=== PATIENT | female | born 1950 | race Caucasian/White ===

== ENCOUNTER 2017-07-05 14:17 | Inpatient (IN) | payer MEDICARE ==
[~2017-07-05] VITALS: Ht 175.3 cm; Wt 66.4 kg
[2017-07-05] MEDS ORDERED: IOHEXOL 350 MG/ML 10 ML VIAL (for RAD DIAG) IVCONTRAST ONE (14:18)
[2017-07-05 16:32] VITALS: BP 134/58; PULSE 66; RESP 16; TEMP 98.9; O2SAT 98
[2017-07-05] MEDS ORDERED: SYNT25TA PO (16:53)
[2017-07-05] MEDS ORDERED: ANAS1 PO (16:53)
[2017-07-05] MEDS ORDERED: LOSA50TA2 PO (16:53)
[2017-07-05] MEDS ORDERED: IRON SUPPLEMENT (16:53)
[2017-07-05 17:01] VITALS: BP 139/63; PULSE 82; RESP 18; O2SAT 98
[2017-07-05] MEDS ORDERED: IMIT50TA PO (17:11)
[2017-07-05] MEDS ORDERED: LOSA100T3 PO ×2 (17:11)
[2017-07-05] MEDS ORDERED: SODIUM CHLOR 0.9% 1000 ML INJ 1,000 ML IV SCH (17:28)
[2017-07-05] MEDS ORDERED: KETOROLAC TROMETHAMINE 30 MG/ML (IVP) VIAL IVP ONE (17:30)
[2017-07-05] MEDS ORDERED: SODIUM CHLORIDE 0.9% FLUSH 10 ML FLUSH IV FLUSH PRN ×2 (17:30→21:30)
[2017-07-05] MEDS ORDERED: ONDANSETRON HCL 4 MG/2 ML VIAL IVP ONE (17:30)
[2017-07-05] MEDS ORDERED: HYDROmorphone HCL PF 1 MG/ML VIAL IVS ONE (17:30)
--- NOTE | 2017-07-05 17:57 | PD ---
HPI Chief Complaint: Fall Time Seen by Provider: 16:59 Travel History International Travel<30 days: No Contact w/Intl Traveler<30days: No Traveled to known affect area: No History of Present Illness HPI The patient 67 years old and fell from a horse about 4 hours prior to ER arrival. She has been ambulatory since. She reports pain in the high back with radiation to the hips which is worse upon attempting to elevate the leg. No head injury or loss of consciousness. Pain is constant and of moderate severity. No nausea vomiting. No hematuria. Onset sudden. Timing constant. Patient reports a chronic neck pain which has not been exacerbated by the fall. PFSH Past Medical History Cancer: Yes ("BREAST") Hypertension: Yes Thyroid Disease: Yes ?: Not Tubal Ligation: Yes ("IN 1984") Past Surgical History Oral Surgery: Yes ("RIGHT BROKEN ARM") Other Surgery: Yes ("LEFT LUMPECTOMY") Social History Alcohol Use: Yes ("2 GLASSES OF WINE IN THE EVENING") Tobacco Use: No Substance Use: No Allergies-Medications (Allergen,Severity, Reaction): Coded Allergies: No Known Allergies (Unverified , 07/05/17) Reported Meds & Prescriptions Reported Meds & Active Scripts Active Reported Imitrex (Sumatriptan Succinate) 50 Mg Tab 50 Mg PO ONCE PRN If a satisfactory response has not been obtained at 2 hours, a second dose may be administered Losartan-Hydrochlorothiazide 100-12.5 Mg Tab 1 Tab PO DAILY [Iron Supplement] Synthroid (Levothyroxine Sodium) 25 Mcg Tab 50 Mcg PO DAILY Arimidex (Anastrozole) 1 Mg Tab 1 Mg PO DAILY Review of Systems Except as stated in HPI: all other systems reviewed are Neg General / Constitutional: No: Fever Physical Exam Narrative GENERAL: 67-year-old female well-nourished well-developed no acute distress SKIN: Warm and dry. HEAD: Atraumatic. Normocephalic. EYES: Pupils equal and round. No scleral icterus. No injection or drainage. ENT: No nasal bleeding or discharge. Mucous membranes pink and moist. NECK: Trachea midline. No JVD. CARDIOVASCULAR: Regular rate and rhythm. RESPIRATORY: Lungs are clear bilaterally. The breath sounds are equal bilaterally. GASTROINTESTINAL: Soft. Diffuse nonspecific tenderness. MUSCULOSKELETAL: Extremities without clubbing, cyanosis, or edema. No obvious deformities. NEUROLOGICAL: Awake and alert. No obvious cranial nerve deficits. Motor grossly within normal limits. Five out of 5 muscle strength in the arms and legs. Normal speech. PSYCHIATRIC: Appropriate mood and affect; insight and judgment normal. Data Data Last Documented VS Vital Signs Date Time Temp Pulse Resp B/P (MAP) Pulse Ox O2 Delivery O2 Flow Rate FiO2 07/05/17 17:01 82 18 139/63 (88) 98 Room Air 07/05/17 16:32 98.9 Orders Orders Complete Blood Count With Diff (07/05/17 17:28) Comprehensive Metabolic Panel (07/05/17 17:28) Lipase (07/05/17 17:28) Urinalysis - C+S If Indicated (07/05/17 17:28) Ct Abd/Pel W Iv Contrast(Rout) (07/05/17 17:28) Iv Access Insert/Monitor (07/05/17 17:28) Ecg Monitoring (07/05/17 17:28) Oximetry (07/05/17 17:28) Ondansetron Inj (Zofran Inj) (07/05/17 17:30) Sodium Chlor 0.9% 1000 Ml Inj (Ns 1000 M (07/05/17 17:28) Sodium Chloride 0.9% Flush (Ns Flush) (07/05/17 17:30) Ketorolac Inj (Toradol Inj) (07/05/17 17:30) Hydromorphone Pf Inj (Dilaudid Pf Inj) (07/05/17 17:30) Labs Laboratory Tests Test 07/05/17 17:45 White Blood Count 13.9 TH/MM3 Red Blood Count 4.10 MIL/MM3 Hemoglobin 13.1 GM/DL Hematocrit 38.5 % Mean Corpuscular Volume 93.8 FL Mean Corpuscular Hemoglobin 31.9 PG Mean Corpuscular Hemoglobin Concent 34.0 % Red Cell Distribution Width 13.0 % Platelet Count 187 TH/MM3 Mean Platelet Volume 8.7 FL Neutrophils (%) (Auto) 81.4 % Lymphocytes (%) (Auto) 4.8 % Monocytes (%) (Auto) 13.4 % Eosinophils (%) (Auto) 0.2 % Basophils (%) (Auto) 0.2 % Neutrophils # (Auto) 11.3 TH/MM3 Lymphocytes # (Auto) 0.7 TH/MM3 Monocytes # (Auto) 1.9 TH/MM3 Eosinophils # (Auto) 0.0 TH/MM3 Basophils # (Auto) 0.0 TH/MM3 CBC Comment DIFF FINAL Differential Comment Blood Urea Nitrogen 21 MG/DL Creatinine 0.80 MG/DL Random Glucose 100 MG/DL Total Protein 6.9 GM/DL Albumin 3.8 GM/DL Calcium Level 8.7 MG/DL Alkaline Phosphatase 81 U/L Aspartate Amino Transf (AST/SGOT) 24 U/L Alanine Aminotransferase (ALT/SGPT) 27 U/L Total Bilirubin 0.4 MG/DL Sodium Level 139 MEQ/L Potassium Level 3.7 MEQ/L Chloride Level 103 MEQ/L Carbon Dioxide Level 29.2 MEQ/L Anion Gap 7 MEQ/L Lipase 3130 U/L [facility] Medical Decision Making Medical Screen Exam Complete: Yes Emergency Medical Condition: Yes Medical Record Reviewed: Yes Differential Diagnosis Vertebral body fracture, contusion, Gastritis, pancreatitis, appendicitis, acute cholecystitis, ascending cholangitis, AAA, perforated viscous, mesenteric ischemia, hepatitis, cystitis, hydronephrosis/hydroureter/nephroureter calculus , mesenteric adenitis, biliary colic Narrative Course CBC & BMP Diagram 07/05/17 17:45 Total Protein 6.9, Albumin 3.8, Calcium Level 8.7, Alkaline Phosphatase 81, Aspartate Amino Transf (AST/SGOT) 24, Alanine Aminotransferase (ALT/SGPT) 27, Total Bilirubin 0.4 The lipase is 3130, and unexpected abnormality in this case. This CT scan data and pelvis is pending at the time of dictation and the case will be discussed with Dr. Candelaria at 7 PM he will see and care with complaint of disposition upon receipt of the CT report. Diagnosis Primary Impression: Fall from horse Additional Impression: Pancreatitis Daniel Nelson MD Jul 05, 2017 17:57
[2017-07-05 17:58] LABS: AUTOMATED NEUTROPHIL # 11.3 TH/MM3 (1.8-7.7); BASOPHIL % 0.2 % (0.0-2.0); EOSINOPHIL % 0.2 % (0.0-4.0); HEMATOCRIT 38.5 % (35.0-46.0); HEMOGLOBIN 13.1 GM/DL (11.6-15.3); LYMPH % 4.8 % (9.0-44.0); LYMPHOCYTE # 0.7 TH/MM3 (1.0-4.8); MEAN CELL VOLUME 93.8 FL (80.0-100.0); MEAN CORPUSCULAR HEMOGLOBIN 31.9 PG (27.0-34.0); MEAN PLATELET VOLUME 8.7 FL (7.0-11.0); MONO % 13.4 % (0.0-8.0); MONOCYTE # 1.9 TH/MM3 (0-0.9); NEUT % 81.4 % (16.0-70.0); PLATELET COUNT 187 TH/MM3 (150-450); WHITE BLOOD COUNT 13.9 TH/MM3 (4.0-11.0)
[2017-07-05 18:20] LABS: ALBUMIN 3.8 GM/DL (3.4-5.0); AST (GOT) 24 U/L (15-37); BICARBONATE 29.2 MEQ/L (21.0-32.0); BLOOD UREA NITROGEN 21 MG/DL (7-18); CALCIUM 8.7 MG/DL (8.5-10.1); CHLORIDE 103 MEQ/L (98-107); GLUCOSE,RANDOM 100 MG/DL (74-106); SODIUM (NA) 139 MEQ/L (136-145)
[2017-07-05 18:23] LABS: ALKALINE PHOSPHATASE 81 U/L (45-117); ALT (GPT) 27 U/L (10-53); LIPASE 3130 U/L (73-393); TOTAL BILIRUBIN ADULT 0.4 MG/DL (0.2-1.0); TOTAL PROTEIN 6.9 GM/DL (6.4-8.2)
[2017-07-05 18:57] LABS: BILIRUBIN, URINE NEG (NEG); BLOOD, URINE TRACE (NEG); GLUCOSE,URINE NEG (NEG); KETONE, URINE 40 mg/dL (NEG); MUCUS URINE FEW /lpf (OCC); NITRITE,URINE NEG (NEG); PH, URINE 5.5 (5.0-8.5); URINE COLOR YELLOW (YELLW/STRAW); URINE LEUKOCYTE ESTERASE NEG (NEG)
--- NOTE | 2017-07-05 19:19 | RADRPT ---
EXAM DATE/TIME: 07/05/2017 18:43 [facility] COMPARISON: No previous studies available for comparison. INDICATIONS : Left pelvic pain after fall off horse. IV CONTRAST: 100 cc Omnipaque 350 (iohexol) IV ORAL CONTRAST: No oral contrast ingested. RADIATION DOSE: 6.16 CTDIvol (mGy) MEDICAL HISTORY : Hypertension. Carcinoma, breast. SURGICAL HISTORY : None. ENCOUNTER: Initial ACUITY: 1 day PAIN SCALE: 8/10 LOCATION: Bilateral abdomen TECHNIQUE: Volumetric scanning of the abdomen and pelvis was performed. Using automated exposure control and ad justment of the mA and/or kV according to patient size, radiation dose was kept as low as reasonably achievable to obtain optimal diagnostic quality images. DICOM format image data is available electro nically for review and comparison. FINDINGS: Acute, minimally displaced fracture seen of the right side of the sacrum. The fracture extends into t he right S1/S2 foramen but without perceptible stenosis. Visualized osseous structures are otherwise intact. The sacral fractures associated with minimal presacral edema. No perceptible organized retrop eritoneal hematoma or evidence of active bleeding. There is an 11 mm hypodensity of the dome of the right hepatic lobe. There is a 2 cm cyst of the mid zone upper pole of the left kidney with a possible focal enhancing component along its superior nadia n. There is a 13 mm mass of the left upper pole with suspected heterogeneous enhancement. Tiny stones are suspected in the gallbladder. There is probably a 3 mm polyp of the fundus. No ductal stone or ductal dilatation demonstrated. CONCLUSION: 1. Focal and uncomplicated, minimally displaced fracture of the right side of the sacrum. 2. 2 masses of the left kidney one having an appearance of a mildly complex cyst and the other possib ly solid. There is also an indeterminate hypodensity of the right hepatic lobe. Outpatient MRI of the abdomen with and without contrast is recommended. Chas Ash MD on July 05, 2017 at 19:08 Board Certified Radiologist. This report was verified electronically.
--- NOTE | 2017-07-05 20:27 | PD ---
Physical Exam Date Seen by Provider: Jul 05, 2017 Time Seen by Provider: 20:24 Narrative Accepted in transfer of care from Dr. Nelson GENERAL: Well-developed well-nourished female in no acute distress no respiratory distress SKIN: Warm and dry. HEAD: Normocephalic. EYES: No scleral icterus. No injection or drainage. NECK: Supple, trachea midline. No JVD or lymphadenopathy. CARDIOVASCULAR: Regular rate and rhythm without murmurs, gallops, or rubs. RESPIRATORY: Breath sounds equal bilaterally. No accessory muscle use. GASTROINTESTINAL: Abdomen soft, non-tender, nondistended. MUSCULOSKELETAL: No cyanosis, or edema. BACK: Nontender without obvious deformity. No CVA tenderness. Data Data Last Documented VS Vital Signs Date Time Temp Pulse Resp B/P (MAP) Pulse Ox O2 Delivery O2 Flow Rate FiO2 07/05/17 21:26 79 18 138/62 (87) 97 Room Air 07/05/17 16:32 98.9 Orders Orders Complete Blood Count With Diff (07/05/17 17:28) Comprehensive Metabolic Panel (07/05/17 17:28) Lipase (07/05/17 17:28) Urinalysis - C+S If Indicated (07/05/17 17:28) Ct Abd/Pel W Iv Contrast(Rout) (07/05/17 17:28) Iv Access Insert/Monitor (07/05/17 17:28) Ecg Monitoring (07/05/17 17:28) Oximetry (07/05/17 17:28) Ondansetron Inj (Zofran Inj) (07/05/17 17:30) Sodium Chlor 0.9% 1000 Ml Inj (Ns 1000 M (07/05/17 17:28) Sodium Chloride 0.9% Flush (Ns Flush) (07/05/17 17:30) Ketorolac Inj (Toradol Inj) (07/05/17 17:30) Hydromorphone Pf Inj (Dilaudid Pf Inj) (07/05/17 17:30) Iohexol 350 Inj (Omnipaque 350 Inj) (07/05/17 14:18) Lipase (07/05/17 21:24) Admit To Inpatient (07/05/17 ) Code Status (07/05/17 21:23) Vital Signs (Adult) Q4H (07/05/17 21:23) Activity Oob With Assistance (07/05/17 21:23) Diet Npo (07/06/17 Breakfast) Sodium Chloride 0.9% Flush (Ns Flush) (07/05/17 21:30) Sodium Chloride 0.9% Flush (Ns Flush) (07/06/17 09:00) Acetaminophen (Tylenol) (07/05/17 21:30) Ondansetron Inj (Zofran Inj) (07/05/17 21:30) Comprehensive Metabolic Panel (07/06/17 06:00) Complete Blood Count With Diff (07/06/17 06:00) Lipase (07/06/17 06:00) Chest, Single Ap (07/05/17 21:23) Electrocardiogram (07/05/17 21:23) Pt Request For Service (07/05/17 21:23) Scd Bilateral/Knee High SUMEET.BID (07/05/17 21:23) Naloxone Inj (Narcan Inj) (07/05/17 21:30) Magnesium Hydroxide Liq (Milk Of Magnesi (07/05/17 21:30) Inpatient Certification (07/05/17 ) 1/2 Ns + Kcl 20 Meq Inj (/2 Ns + Kcl 20 (07/05/17 22:00) Anastrozole (Arimidex) (07/06/17 09:00) Sumatriptan Succinate (Imitrex) (07/05/17 21:30) Lipase (07/05/17 21:35) Levothyroxine (Synthroid) (07/06/17 06:00) Admit Order (Ed Use Only) (07/05/17 ) Vital Signs (Adult) Q4H (07/05/17 21:35) Activity Bed Rest (07/05/17 21:35) Notify Dr: Other (07/05/17 21:35) Labs Laboratory Tests Test 07/05/17 17:45 07/05/17 18:30 White Blood Count 13.9 TH/MM3 Red Blood Count 4.10 MIL/MM3 Hemoglobin 13.1 GM/DL Hematocrit 38.5 % Mean Corpuscular Volume 93.8 FL Mean Corpuscular Hemoglobin 31.9 PG Mean Corpuscular Hemoglobin Concent 34.0 % Red Cell Distribution Width 13.0 % Platelet Count 187 TH/MM3 Mean Platelet Volume 8.7 FL Neutrophils (%) (Auto) 81.4 % Lymphocytes (%) (Auto) 4.8 % Monocytes (%) (Auto) 13.4 % Eosinophils (%) (Auto) 0.2 % Basophils (%) (Auto) 0.2 % Neutrophils # (Auto) 11.3 TH/MM3 Lymphocytes # (Auto) 0.7 TH/MM3 Monocytes # (Auto) 1.9 TH/MM3 Eosinophils # (Auto) 0.0 TH/MM3 Basophils # (Auto) 0.0 TH/MM3 CBC Comment DIFF FINAL Differential Comment Blood Urea Nitrogen 21 MG/DL Creatinine 0.80 MG/DL Random Glucose 100 MG/DL Total Protein 6.9 GM/DL Albumin 3.8 GM/DL Calcium Level 8.7 MG/DL Alkaline Phosphatase 81 U/L Aspartate Amino Transf (AST/SGOT) 24 U/L Alanine Aminotransferase (ALT/SGPT) 27 U/L Total Bilirubin 0.4 MG/DL Sodium Level 139 MEQ/L Potassium Level 3.7 MEQ/L Chloride Level 103 MEQ/L Carbon Dioxide Level 29.2 MEQ/L Anion Gap 7 MEQ/L Lipase 3130 U/L Urine Color YELLOW Urine Turbidity CLEAR Urine pH 5.5 Urine Specific [place] 1.014 Urine Protein NEG mg/dL Urine Glucose (UA) NEG mg/dL Urine Ketones 40 mg/dL Urine Occult Blood TRACE Urine Nitrite NEG Urine Bilirubin NEG Urine Urobilinogen LESS THAN 2.0 MG/DL Urine Leukocyte Esterase NEG Urine RBC 3 /hpf Urine WBC 1 /hpf Urine Mucus FEW /lpf Microscopic Urinalysis Comment CULT NOT INDICATED MDM Medical Record Reviewed: Yes Supervised Visit with JONO: No Interpretation(s) Last Impressions Abdomen/Pelvis CT 07/05/17 1208 Signed Impressions: Service Date/Time: Wednesday, July 05, 2017 18:43 - CONCLUSION: 1. Focal and uncomplicated, minimally displaced fracture of the right side of the sacrum. 2. 2 masses of the left kidney one having an appearance of a mildly complex cyst and the other possibly solid. There is also an indeterminate hypodensity of the right hepatic lobe. Outpatient MRI of the abdomen with and without contrast is recommended. Chas Ash MD CBC & BMP Diagram 07/05/17 17:45 Total Protein 6.9, Albumin 3.8, Calcium Level 8.7, Alkaline Phosphatase 81, Aspartate Amino Transf (AST/SGOT) 24, Alanine Aminotransferase (ALT/SGPT) 27, Total Bilirubin 0.4 Vital Signs Date Time Temp Pulse Resp B/P (MAP) Pulse Ox O2 Delivery O2 Flow Rate FiO2 07/05/17 17:01 82 18 139/63 (88) 98 Room Air 07/05/17 16:32 98.9 66 16 134/58 (83) 98 Room Air Differential Diagnosis Accepted in transfer of care from Dr. Nelson please refer to his dictation Narrative Course Accepted in transfer of care from Dr. Nelson for follow-up of pending labs CT and patient admission patient presented with lower thoracic back pain after falling off of a horse around 1 PM this afternoon was identified to have elevated lipase patient denies any abdominal pain back pain is 3/10 in intensity after narcotic pain medication CT pending CT consistent with right sacral fracture otherwise no acute intra-abdominal or pelvic abnormalities identified Stat repeat lipase and amylase ordered Patient's case discussed with on-call trauma surgeon Dr. Pham regarding pelvic fracture, orthopedist Dr. Almazan is aware of isolated right sacral fracture requests consult in a.m. to Dr. Lowe; discussed with Dr. Drummond for observation admission Physician Communication Physician Communication discussed with DR Pham -trauma; discussed with Dr Drummond for admission; discussed with Dr Almazan --ortho --consult to Dr Lowe for the AM Diagnosis Primary Impression: Fall from horse Qualified Codes: V80.010A - Animal-rider injured by fall from or being thrown from horse in noncollision accident, initial encounter Additional Impressions: Pancreatitis Qualified Codes: K85.90 - Acute pancreatitis without necrosis or infection, unspecified Fracture of sacrum Admitting Information Admitting Physician Requests: Observation Roberta Candelaria MD Jul 05, 2017 20:27
[2017-07-05 21:26] VITALS: BP 138/62; PULSE 79; RESP 18; O2SAT 97
[2017-07-05] MEDS ORDERED: ONDANSETRON HCL 4 MG/2 ML VIAL IVP PRN (21:30)
[2017-07-05] MEDS ORDERED: MAGNESIUM HYDROXIDE SUSP 30 ML CUP PO PRN (21:30)
[2017-07-05] MEDS ORDERED: SUMAtriptan SUCCINATE 50 MG TAB PO PRN (21:30)
[2017-07-05] MEDS ORDERED: NALOXONE HCL 0.4 MG/ML AMP IV PUSH PRN (21:30)
[2017-07-05] MEDS ORDERED: ACETAMINOPHEN 325 MG TAB PO PRN (21:30)
--- NOTE | 2017-07-05 22:11 | RADRPT ---
EXAM DATE/TIME: 07/05/2017 21:36 [facility] COMPARISON: No previous studies available for comparison. INDICATIONS : Cough. MEDICAL HISTORY : None. SURGICAL HISTORY : None. ENCOUNTER: Initial ACUITY: 1 day PAIN SCORE: 0/10 LOCATION: Bilateral chest FINDINGS: A single view of the chest demonstrates the lungs to be symmetrically aerated without evidence of mas s, infiltrate or effusion. The cardiomediastinal contours are unremarkable. Osseous structures are intact. Surgical changes of the left breast noted. CONCLUSION: No evidence of acute cardiopulmonary disease. Chas Ash MD on July 05, 2017 at 22:08 Board Certified Radiologist. This report was verified electronically.
[2017-07-05 22:29] LABS: AMYLASE 115 U/L (25-115); LIPASE 1234 U/L (73-393)
[2017-07-05] MEDS ORDERED: HYDROmorphone HCL PF 1 MG/ML VIAL IV PUSH PRN (22:30)
[2017-07-05] MEDS: 1/2 NS + KCL 20 MEQ INJ 1,000 ML IV SCH (22:42)
[2017-07-05 23:00] VITALS: BP 152/68; PULSE 80; RESP 18; TEMP 98.6; O2SAT 99
[2017-07-06] MEDS ORDERED: HYDROmorphone HCL PF 2 MG/ML VIAL IV PUSH PRN (03:30)
[2017-07-06 04:15] VITALS: BP 120/57; PULSE 76; RESP 18; TEMP 98.7; O2SAT 98
[2017-07-06 06:06] LABS: AUTOMATED NEUTROPHIL # 4.9 TH/MM3 (1.8-7.7); BASOPHIL % 0.6 % (0.0-2.0); EOSINOPHIL # 0.1 TH/MM3 (0-0.4); EOSINOPHIL % 1.5 % (0.0-4.0); HEMATOCRIT 37.1 % (35.0-46.0); HEMOGLOBIN 12.2 GM/DL (11.6-15.3); LYMPH % 13.3 % (9.0-44.0); LYMPHOCYTE # 0.9 TH/MM3 (1.0-4.8); MEAN CELL VOLUME 94.1 FL (80.0-100.0); MEAN CORPUSCULAR HGB CONC 32.9 % (32.0-36.0); MONOCYTE # 1.1 TH/MM3 (0-0.9); NEUT % 69.6 % (16.0-70.0); PLATELET COUNT 153 TH/MM3 (150-450); RED BLOOD COUNT 3.94 MIL/MM3 (4.00-5.30); RED CELL DISTRIBUTION WIDTH 12.7 % (11.6-17.2)
[2017-07-06 06:27] LABS: ALBUMIN 3.2 GM/DL (3.4-5.0); AST (GOT) 14 U/L (15-37); BICARBONATE 24.7 MEQ/L (21.0-32.0); BLOOD UREA NITROGEN 17 MG/DL (7-18); CALCIUM 8.4 MG/DL (8.5-10.1); CHLORIDE 103 MEQ/L (98-107); CREATININE 0.74 MG/DL (0.50-1.00); GLOMERULAR FILTRATION RATE 79 ML/MIN (>89); GLUCOSE,RANDOM 84 MG/DL (74-106); LIPASE 309 U/L (73-393); SODIUM (NA) 138 MEQ/L (136-145)
[2017-07-06 06:31] LABS: ALKALINE PHOSPHATASE 69 U/L (45-117); ALT (GPT) 21 U/L (10-53); TOTAL BILIRUBIN ADULT 0.6 MG/DL (0.2-1.0); TOTAL PROTEIN 6.1 GM/DL (6.4-8.2)
[2017-07-06] MEDS: LEVOTHYROXINE SODIUM 50 MCG TAB PO SCH (06:37)
[2017-07-06] MEDS ORDERED: WALKER/ADULT/FO1 MIS (06:39)
[2017-07-06 08:00] VITALS: BP 123/60; PULSE 84; RESP 18; TEMP 98.5; O2SAT 98
[2017-07-06] MEDS ORDERED: HYDROCHLOROTHIAZIDE 12.5 MG CAP PO SCH (09:00)
[2017-07-06] MEDS ORDERED: NON-FORMULARY DRUG (Losartan-Hydrochlorothiazide 1 TAB) PO SCH (09:00)
[2017-07-06] MEDS: SODIUM CHLORIDE 0.9% FLUSH 10 ML FLUSH IV FLUSH SCH ×2 (09:00→20:18)
[2017-07-06] MEDS: LOSARTAN 50 MG TAB PO SCH (09:02)
[2017-07-06] MEDS: ANASTROZOLE 1 MG TAB PO SCH (09:03)
--- NOTE | 2017-07-06 09:19 | HHI.HP ---
HPI Service [facility] Hospitalists Primary Care Physician Chung Wolff MD Admission Diagnosis acute sacral fracture; hyperlipasemia Chief Complaint: Back pain Travel History International Travel<30 Days: No Contact w/Intl Traveler <30 Da: No Traveled to Known Affected Are: No History of Present Illness Mrs. Hermosillo is a 67 y/o female with hypothyroidism, migraine headaches, osteoarthritis, HTN and hx of breast cancer. She presented to the ED on 07/05/17 after falling from a horse at a nancy event around 1 PM, about 4 hours prior to arrival at the ED. She was ambulatory after the fall but reported pain in the lower back with radiation to the hips which was worse upon attempting to elevate the leg. There was no head injury or loss of consciousness. She also reports a chronic neck pain which has not been exacerbated by the fall. CT Abd/ pelvis in the ED noted focal and uncomplicated, minimally displaced fracture of the right side of the sacrum, 2 masses of the left kidney one having an appearance of a mildly complex cyst and the other possibly solid, and there is also an indeterminate hypodensity of the right hepatic lobe. She had a noted elevated Lipase level of 3130 but denies any abdominal pain. Repeat lipase level came down to 1234 in the ED with Amylase level of 115. This mornings labs with Lipase of 309. Review of Systems Constitutional: DENIES: Fever, Chills Eyes: DENIES: Vision loss Ears, nose, mouth, throat: DENIES: Hearing loss Respiratory: DENIES: Cough, Shortness of breath Cardiovascular: DENIES: Chest pain, Palpitations Gastrointestinal: DENIES: Abdominal pain, Nausea, Vomiting Musculoskeletal: COMPLAINS OF: Back pain Integumentary: DENIES: Rash Neurologic: DENIES: Headache Psychiatric: DENIES: Confusion Past Family Social History Past Medical History HTN Hypothyroidism Hx of breast cancer, HER-2 negative, invasive ductal carcinoma with 06/[address] in 2011 s/p lumpectomy with chemo and XRT and is on Arimidex Osteopenia Migraine headache Past Surgical History Left breast lumpectomy in 2011 Tubal ligation in 1985 Reported Medications -Imitrex 50 Mg PO ONCE PRN -Losartan-Hydrochlorothiazide 100-12.5 Mg Tab 1 Tab PO DAILY -Iron Supplement -Synthroid 50 Mcg PO DAILY -Arimidex 1 Mg PO DAILY --Tizanidine 2mg TID --Fluticasone Nasal spray 50mcg 2 sprays nightly to each nostril Allergies: Coded Allergies: No Known Allergies (Unverified , 07/05/17) Family History Brother with hx of leukemia Social History (+)Alcohol use, she drinks 2-3 glasses of wine with dinner Denies any tobacco use or illicit drug use Pt is She worked as a office secretary Physical Exam Vital Signs Vital Signs Date Time Temp Pulse Resp B/P (MAP) Pulse Ox O2 Delivery O2 Flow Rate FiO2 07/06/17 04:15 98.7 76 18 120/57 (78) 98 07/05/17 23:00 98.6 80 18 152/68 (96) 99 07/05/17 22:42 07/05/17 21:26 79 18 138/62 (87) 97 Room Air 07/05/17 17:01 82 18 139/63 (88) 98 Room Air 07/05/17 16:32 98.9 66 16 134/58 (83) 98 Room Air Physical Exam GENERAL: This is a well-nourished, well-developed patient, in no apparent distress. HEENT: Atraumatic. Normocephalic. No temporal or scalp tenderness. No scleral icterus. Airway patent. NECK: Trachea midline, supple, nontender. CARDIO: Regular. RESP: CTA bilaterally. No wheezes, rales, or rhonchi. ABD: +BS, soft, non-tender, nondistended. EXT: Extremities without clubbing, cyanosis, or edema. NEURO: Awake and alert. Motor and sensory grossly within normal limits. Normal speech. Laboratory Laboratory Tests Test 07/05/17 17:45 07/05/17 18:30 07/05/17 22:00 07/06/17 03:45 White Blood Count 13.9 7.0 Red Blood Count 4.10 3.94 Hemoglobin 13.1 12.2 Hematocrit 38.5 37.1 Mean Corpuscular Volume 93.8 94.1 Mean Corpuscular Hemoglobin 31.9 31.0 Mean Corpuscular Hemoglobin Concent 34.0 32.9 Red Cell Distribution Width 13.0 12.7 Platelet Count 187 153 Mean Platelet Volume 8.7 9.0 Neutrophils (%) (Auto) 81.4 69.6 Lymphocytes (%) (Auto) 4.8 13.3 Monocytes (%) (Auto) 13.4 15.0 Eosinophils (%) (Auto) 0.2 1.5 Basophils (%) (Auto) 0.2 0.6 Neutrophils # (Auto) 11.3 4.9 Lymphocytes # (Auto) 0.7 0.9 Monocytes # (Auto) 1.9 1.1 Eosinophils # (Auto) 0.0 0.1 Basophils # (Auto) 0.0 0.0 CBC Comment DIFF FINAL DIFF FINAL Differential Comment Blood Urea Nitrogen 21 17 Creatinine 0.80 0.74 Random Glucose 100 84 Total Protein 6.9 6.1 Albumin 3.8 3.2 Calcium Level 8.7 8.4 Alkaline Phosphatase 81 69 Aspartate Amino Transf (AST/SGOT) 24 14 Alanine Aminotransferase (ALT/SGPT) 27 21 Total Bilirubin 0.4 0.6 Sodium Level 139 138 Potassium Level 3.7 3.6 Chloride Level 103 103 Carbon Dioxide Level 29.2 24.7 Anion Gap 7 10 Lipase 3130 1234 309 Urine Color YELLOW Urine Turbidity CLEAR Urine pH 5.5 Urine Specific [place] 1.014 Urine Protein NEG Urine Glucose (UA) NEG Urine Ketones 40 Urine Occult Blood TRACE Urine Nitrite NEG Urine Bilirubin NEG Urine Urobilinogen LESS THAN 2.0 Urine Leukocyte Esterase NEG Urine RBC 3 Urine WBC 1 Urine Mucus FEW Microscopic Urinalysis Comment CULT NOT INDICATED Amylase Level 115 Estimat Glomerular Filtration Rate 79 Result Diagram: 07/06/175 07/06/17344 Imaging Last Impressions Chest X-Ray 07/05/172122 Signed Impressions: Service Date/Time: Wednesday, July 05, 2017 21:36 - CONCLUSION: No evidence of acute cardiopulmonary disease. Chas Ash MD Abdomen/Pelvis CT 07/05/17 1728 Signed Impressions: Service Date/Time: Wednesday, July 05, 2017 18:43 - CONCLUSION: 1. Focal and uncomplicated, minimally displaced fracture of the right side of the sacrum. 2. 2 masses of the left kidney one having an appearance of a mildly complex cyst and the other possibly solid. There is also an indeterminate hypodensity of the right hepatic lobe. Outpatient MRI of the abdomen with and without contrast is recommended. Chas Ash MD Caprini VTE Risk Assessment Caprini VTE Risk Assessment: No/Low Risk (score <= 1) Caprini Risk Assessment Model Point Value = 1 Point Value = 2 Point Value = 3 Point Value = 5 Age 41-60 Minor surgery BMI > 25 kg/m2 Swollen legs Varicose veins or History of unexplained or recurrent spontaneous Oral contraceptives or hormone replacement Sepsis (< 1 month) Serious lung disease, including pneumonia (< 1 month) Abnormal pulmonary function Acute myocardial infarction Congestive heart failure (< 1 month) History of inflammatory bowel disease Medical patient at bed rest Age 61-74 Arthroscopic surgery Major open surgery (> 45 min) Laparoscopic surgery (> 45 min) Malignancy Confined to bed (> 72 hours) Immobilizing plaster cast Central venous access Age >= 75 History of VTE Family history of VTE Factor V Leiden Prothrombin [id number] Lupus anticoagulant Anticardiolipin antibodies Elevated serum homocysteine Heparin-induced thrombocytopenia Other congenital or acquired thrombophilia Stroke (< 1 month) Elective arthroplasty Hip, pelvis, or leg fracture Acute spinal cord injury (< 1 month) Prophylaxis Regimen Total Risk Factor Score Risk Level Prophylaxis Regimen 0-1 Low Early ambulation 2 Moderate Order ONE of the following: *Sequential Compression Device (SCD) *Heparin 5000 units SQ BID 3-4 Higher Order ONE of the following medications: *Heparin 5000 units SQ TID *Enoxaparin/Lovenox 40 mg SQ daily (WT < 150 kg, CrCl > 30 mL/min) *Enoxaparin/Lovenox 30 mg SQ daily (WT < 150 kg, CrCl > 10-29 mL/min) *Enoxaparin/Lovenox 30 mg SQ BID (WT < 150 kg, CrCl > 30 mL/min) AND/OR *Sequential Compression Device (SCD) 5 or more Highest Order ONE of the following medications: *Heparin 5000 units SQ TID (Preferred with Epidurals) *Enoxaparin/Lovenox 40 mg SQ daily (WT < 150 kg, CrCl > 30 mL/min) *Enoxaparin/Lovenox 30 mg SQ daily (WT < 150 kg, CrCl > 10-29 mL/min) *Enoxaparin/Lovenox 30 mg SQ BID (WT < 150 kg, CrCl > 30 mL/min) AND *Sequential Compression Device (SCD) Assessment and Plan Problem List: (1) Fracture of sacrum ICD Codes: S32.10XA - Unspecified fracture of sacrum, initial encounter for closed fracture Status: Acute Plan: - Pt is a 67 y/o female with hypothyroidism, migraine headaches, osteoarthritis , HTN and hx of breast cancer. - She presented to the ED on 07/05/17 after falling from a horse at a nancy event around 1 PM, about 4 hours prior to arrival at the ED. - She was ambulatory after the fall but reported pain in the lower back with radiation to the hips which was worse upon attempting to elevate the leg. There was no head injury or loss of consciousness. - CT Abd/pelvis in the ED noted focal and uncomplicated, minimally displaced fracture of the right side of the sacrum. - Trauma surgery was contacted in the ED and recommended Orthopedic surgery consultation - Ortho has been consulted - Pain control PRN - IVF - Supportive care (2) Fall from horse ICD Codes: V80.010A - Animal-rider injured by fall from or being thrown from horse in noncollision accident, initial encounter Status: Acute Plan: - See above (3) Elevated lipase ICD Codes: R74.8 - Abnormal levels of other serum enzymes Status: Acute Plan: - Labs in the ED noted elevated Lipase level of 3130 but no reported abdominal pain. - Repeat lipase level came down to 1234 in the ED with Amylase level of 115. This mornings labs with Lipase of 309. - This may be related to the trauma of the pts fall - There was no evidence of pancreatitis on CT scan - Pt should minimize alcohol use upon discharge (4) Renal mass ICD Codes: N28.89 - Other specified disorders of kidney and ureter Plan: - CT abd/pelvis incidentally noted 2 masses of the left kidney one having an appearance of a mildly complex cyst and the other possibly solid, and there is also an indeterminate hypodensity of the right hepatic lobe. - MRI with IV contrast recommended but in light of the pt just receiving IV contrast with the CT scan we will proceed with this imaging test tomorrow - Pt receiving IVF today (5) HTN (hypertension) ICD Codes: I10 - Essential (primary) hypertension Plan: - Hold the HCTZ - Losartan resumed - Monitor BP closely (6) Hypothyroidism ICD Codes: E03.9 - Hypothyroidism, unspecified Plan: - Home meds resumed Assessment and Plan Patient examined. Assessment and plan formulated with Carmita Rivers PA-C. I agree with the above. Appreciate input from Orthopedic service. Pt's pain is controlled. Per pt, left kidney mass is known and being followed by Urology. Will obtain MRI abdomen in AM (07/07) Physician Certification 2 Midnight Certification Type: Admission for Inpatient Services Order for Inpatient Services The services are ordered in accordance with Medicare regulations or non- Medicare payer requirements, as applicable. In the case of services not specified as inpatient-only, they are appropriately provided as inpatient services in accordance with the 2-midnight benchmark. Estimated LOS (days): 2 2 days is the estimated time the patient will need to remain in the hospital, assuming treatment plan goals are met and no additional complications. Post-Hospital Plan: Not yet determined Problem Qualifiers (1) Fracture of sacrum: (2) Fall from horse: Qualified Codes: V80.010A - Animal-rider injured by fall from or being thrown from horse in noncollision accident, initial encounter Carmita Rivers Jul 06, 2017 09:19 Carlos Drummond DO Jul 06, 2017 22:42
[2017-07-06] MEDS: 1/2 NS + KCL 20 MEQ INJ 1,000 ML IV SCH ×2 (09:55→21:50)
--- NOTE | 2017-07-06 10:33 | MB ---
cc: KEITH DRUMMOND DO STEPHANIE TAYLOR DATE OF CONSULTATION 07/06/2017 DATE OF ADMISSION 07/05/2017 REASON FOR CONSULTATION Nondisplaced right-sided sacral fracture. CONSULTING PHYSICIAN Dr. Drummond. HISTORY OF PRESENT ILLNESS Pratibha is a 67-year-old female. She was riding a horse at a nancy event. She fell off the horse. She landed on her left buttock area. She had immediate left-sided hip and pelvic pain. She presented to the emergency room. CT scan of the pelvis was performed. CT scan revealed a nondisplaced fracture of the right side of the sacrum. She is currently awake and alert on the orthopedic floor. Her pain is mostly on the left side. Pain is worse with movement and is improved with rest. PAST MEDICAL HISTORY ILLNESSES 1. Hypertension. 2. Hypothyroidism. 3. History of breast cancer. 4. Osteopenia. SURGERIES 1. Left breast lumpectomy. 2. Tubal ligation. MEDICATIONS 1. Imitrex. 2. Losartan. 3. Synthroid. 4. Arimidex. 5. Tizanidine. 6. Fluticasone nasal spray. ALLERGIES No known drug allergies. FAMILY HISTORY Positive for leukemia in her brother. SOCIAL HISTORY The patient drinks alcohol occasionally. She denies tobacco or drug use. She is . She works as a executive secretary social welfare. REVIEW OF SYSTEMS The patient denies headache, visual changes, neck pain, chest pain, shortness of breath, abdominal pain, nausea, vomiting or recent weight loss, fevers or chills, numbness or tingling of extremities, bowel or bladder incontinence. She complains of left-sided hip and pelvic pain. PHYSICAL EXAMINATION GENERAL: The patient is a well-developed, well-nourished 67-year-old female. She is awake and alert. She is in no acute distress. VITAL SIGNS: Temperature 98.5, pulse 84, respirations 18, blood pressure 123/60. O2 sat is 98% on room air. HEAD: The patient is normocephalic. Pupils are equal. NECK: Soft, nontender. Trachea is midline. ABDOMEN: Soft, nontender, nondistended. EXTREMITIES: Examination of bilateral upper extremities reveals no pain with shoulder, elbow or wrist motion. She has intact sensation in all fingers. She has good capillary refill in all fingers. Skin is intact to both hands. Radial pulses are palpable. Optician Manager strength is +5 bilaterally. Examination of right leg reveals no significant pain with hip, knee or ankle motion. Skin is intact. Dorsalis pedis pulse is palpable. Sensation is intact. Examination of left leg reveals minimal discomfort with gentle hip, knee or ankle motion. Skin is intact to left foot. Dorsalis pedis pulse is palpable. Sensation is intact. PELVIS: She is tender to palpation over the left side of her hip and gluteus muscles. She has minimal tenderness over the right side of her sacrum and pelvis. She has minimal pain with AP and lateral compression of her pelvis. CT SCAN CT scan of the pelvis was reviewed. The patient has a nondisplaced fracture through the anterior aspect of the right side of her sacrum. IMPRESSION 1. Nondisplaced right-sided sacral fracture. 2. Left hip contusion. PLAN The treatment options were discussed with the patient. At this point I would recommend conservative treatment. The patient may weight bear as tolerated. Will have her work with physical therapy. I would anticipate the contusion to resolve over the next 6-8 weeks. All of her questions were answered. A mid-level provider in my office, nurse practitioner or PA, may see this patient on a follow-up basis and continue to implement the objective of this plan including: Starting or adjusting medications, injections of muscle, tendon, bursa or joints, cast application, orthotic or brace application, physical therapy, further radiographic studies including x-ray, MRI, CT, ultrasounds or bone scan, vascular studies, neurologic studies, or other specialist consultations, and proceeding with surgical management as appropriate. MD RAMIRO Murillo/DEVI /10:08 AM /10:13 AM
[2017-07-06 12:00] VITALS: BP 126/78; PULSE 83; RESP 18; TEMP 98.9; O2SAT 98
[2017-07-06] MEDS: traMADol HCL 50 MG TAB PO PRN ×2 (13:16→23:52)
--- NOTE | 2017-07-06 15:43 | EKG ---
Date Performed: 07/05/2017 Time Performed: 21:52:20 PTAGE: 67 years EKG: Sinus rhythm WITH SHORT NE INTERVAL POSSIBLE LEFT ATRIAL ENLARGEMENT POSSIBLE RIGHT VENTRICULAR CONDUCTION DELAY BORDERLINE ECG NO PREVIOUS TRACING DOCTOR: Anupam Manning Interpretating Date/Time 07/06/2017 15:42:47
[2017-07-06 16:00] VITALS: BP 121/67; PULSE 86; RESP 18; TEMP 98.5; O2SAT 96
[2017-07-06] MEDS ORDERED: SUMAtriptan SUCCINATE 50 MG TAB PO PRN (18:00)
[2017-07-06 20:00] VITALS: BP 139/70; PULSE 73; RESP 16; TEMP 98.8; O2SAT 93
[2017-07-06] MEDS: DOCUSATE SODIUM 100 MG CAP PO SCH (20:18)
[2017-07-07] VITALS: BP 128/66; PULSE 79; RESP 16; TEMP 98.2; O2SAT 96
[2017-07-07 04:00] VITALS: BP 145/75; PULSE 81; RESP 16; TEMP 98.4; O2SAT 95
[2017-07-07] MEDS: LEVOTHYROXINE SODIUM 50 MCG TAB PO SCH (06:05)
--- NOTE | 2017-07-07 06:30 | PD.ORT.PN ---
Subjective Subjective Remarks s/p right sacral fx doing well. reports soreness but out of bed with therapy and walker yesterday Objective Vitals Vital Signs Date Time Temp Pulse Resp B/P (MAP) Pulse Ox O2 Delivery O2 Flow Rate FiO2 07/07/17 00:00 98.2 79 16 128/66 (86) 96 07/06/17 20:00 98.8 73 16 139/70 (93) 93 07/06/17 16:00 98.5 86 18 121/67 (85) 96 07/06/17 12:00 98.9 83 18 126/78 (94) 98 07/06/17 08:00 98.5 84 18 123/60 (81) 98 I/O 07/06/17 07/06/17 07/06/17 07/07/17 07/07/17 07/07/17 07:00 15:00 23:00 07:00 15:00 23:00 Intake Total 0 ml 600 ml Balance 0 ml 600 ml Intake Oral 0 ml 600 ml # Voids 2 4 # Bowel Movements 0 0 Result Diagram: 07/06/17 0345 07/06/17 034 Objective Remarks RLE: good motion of hip with minimal discomfort. nvi Assessment & Plan Assessment and Plan 1) Right Sacral Fx - nonop -WBAT -gait training -work with therapy -ortho cleared for discharge -f/u Chrissy 2 weeks Andrzej Godinez/Statistical Consultant PA Jul 07, 2017 06:30
[2017-07-07 07:52] VITALS: BP 140/72; PULSE 82; RESP 18; TEMP 96; O2SAT 95
[2017-07-07] MEDS: LOSARTAN 50 MG TAB PO SCH (09:00)
[2017-07-07 09:01] LABS: AUTOMATED NEUTROPHIL # 4.4 TH/MM3 (1.8-7.7); BASOPHIL % 0.8 % (0.0-2.0); EOSINOPHIL # 0.2 TH/MM3 (0-0.4); EOSINOPHIL % 3.3 % (0.0-4.0); HEMATOCRIT 36.9 % (35.0-46.0); HEMOGLOBIN 12.6 GM/DL (11.6-15.3); LYMPH % 9.6 % (9.0-44.0); LYMPHOCYTE # 0.6 TH/MM3 (1.0-4.8); MEAN CELL VOLUME 93.2 FL (80.0-100.0); MEAN CORPUSCULAR HEMOGLOBIN 31.9 PG (27.0-34.0); MEAN CORPUSCULAR HGB CONC 34.2 % (32.0-36.0); MEAN PLATELET VOLUME 9.4 FL (7.0-11.0); MONO % 16.1 % (0.0-8.0); NEUT % 70.2 % (16.0-70.0); PLATELET COUNT 151 TH/MM3 (150-450); RED BLOOD COUNT 3.96 MIL/MM3 (4.00-5.30); RED CELL DISTRIBUTION WIDTH 12.6 % (11.6-17.2); WHITE BLOOD COUNT 6.3 TH/MM3 (4.0-11.0)
[2017-07-07 09:25] LABS: BICARBONATE 24.9 MEQ/L (21.0-32.0); CALCIUM 8.6 MG/DL (8.5-10.1); CREATININE 0.62 MG/DL (0.50-1.00)
[2017-07-07] MEDS: DOCUSATE SODIUM 100 MG CAP PO SCH ×2 (09:26→21:21)
[2017-07-07] MEDS: 1/2 NS + KCL 20 MEQ INJ 1,000 ML IV SCH ×2 (09:26→21:40)
[2017-07-07] MEDS: SODIUM CHLORIDE 0.9% FLUSH 10 ML FLUSH IV FLUSH SCH ×2 (09:26→21:22)
[2017-07-07] MEDS: traMADol HCL 50 MG TAB PO PRN (09:26)
[2017-07-07] MEDS: ANASTROZOLE 1 MG TAB PO SCH (09:26)
[2017-07-07 11:57] VITALS: BP 121/60; PULSE 85; RESP 18; TEMP 98; O2SAT 94
[2017-07-07] MEDS ORDERED: GADODIAMIDE PF 287 MG/ML 10 ML VIAL (for RAD MRI) IV PUSH ONE (12:15)
--- NOTE | 2017-07-07 13:31 | RADRPT ---
EXAM DATE/TIME: 07/07/2017 12:03 [facility] COMPARISON: CT ABDOMEN & PELVIS W CONTRAST, July 05, 2017, 18:43. INDICATIONS : Renal mass. CONTRAST: 7 cc Omniscan (gadodiamide) IV MEDICAL HISTORY : Carcinoma, breast. Hypertension. SURGICAL HISTORY : Tubal ligation. Lumpectomy left breast. ENCOUNTER: Initial ACUITY: 3 day PAIN SCORE: 0/10 LOCATION: abdomen. TECHNIQUE: Multiplanar, multisequence magnetic resonance imaging of the abdomen was performed without and with i ntravenous contrast. FINDINGS: LIVER: Normal size with normal signal intensity. No concerning lesion is identified. Within the right poste rior liver there is a 9 by 8mm lobulated T2 hyperintense nonenhancing lesion with features consistent with a cyst. Portal vein is within normal limits. BILIARY: There is no intra- or extra-hepatic biliary ductal dilatation. Gallbladder contains no stones. SPLEEN: Within normal limits. PANCREAS: Within normal limits. ADRENALS: Within normal limits. KIDNEYS: Normal size and signal intensity. There is no hydronephrosis or mass. At the left upper pole kidney there is a markedly T2 hypointense and T1 hyperintense nonenhancing lesion measuring 1.2 x 1.2 cm. [place] btraction imaging demonstrates no internal enhancement. Within the left upper to mid kidney there is a mixed signal intensity lesion with hemorrhagic features at the superior aspect. There is no interna l enhancement visualized. OTHER: Aorta is nonaneurysmal. There is no lymphadenopathy. CONCLUSION: 1. The left upper pole renal lesion measures 12 mm and is diagnostic of a hemorrhagic cyst. The other lesion in the left mid to upper kidney is partially a simple cyst and partially a hemorrhagic cyst. Although nonspecific, the hemorrhagic contents could be related to the trauma. 2. The 9 mm lesion identified in the right lobe of the liver has imaging features diagnostic of a justin ign cyst. Chas Farah MD on July 07, 2017 at 13:16 Board Certified Radiologist. This report was verified electronically.
--- NOTE | 2017-07-07 15:18 | HHI.FF ---
Face to Face Verification Diagnosis: (1) Renal cyst (2) HTN (hypertension) (3) Fall from horse (4) Fracture of sacrum (5) Elevated lipase (6) Hypothyroidism Physical Therapy Order: Evaluate and Treat, Improve ambulation, Strength and gait training Occupational Therapy Order: Evaluate and Treat Home Health Nursing Order: Nursing assessment with vital signs I have seen patient Pratibha Hermosillo on 07/07/17. My clinical findings support the need for the requested home health care services because: Ltd mobility - disease progression I certify that my clinical findings support that this patient is homebound because: Unsteady gait/balance Carmita Rivers Jul 07, 2017 15:18
[2017-07-07] MEDS ORDERED: ADJUSTABLE COMM1 MIS (15:20)
--- NOTE | 2017-07-07 15:59 | HHI.PR ---
Subjective Remarks Pt overall is stable She is ambulating with the walker but reports some discomfort with ambulation Pt states that this morning after receiving pain meds she had some orthostatic hypotension with BP dropping to 85/44 with ambulation We repeated orthostatic vital signs in the room which were negative. Objective Vitals Vital Signs Date Time Temp Pulse Resp B/P (MAP) Pulse Ox O2 Delivery O2 Flow Rate FiO2 07/07/17 11:57 98.0 85 18 121/60 (80) 94 07/07/17 10:26 16 07/07/17 07:52 96.0 82 18 140/72 (94) 95 07/07/17 04:00 98.4 81 16 145/75 (98) 95 07/07/17 00:00 98.2 79 16 128/66 (86) 96 07/06/17 20:00 98.8 73 16 139/70 (93) 93 07/06/17 16:00 98.5 86 18 121/67 (85) 96 Result Diagram: 07/07/17 0722 07/07/17 0722 Other Results Laboratory Tests Test 07/05/17 17:45 07/05/17 18:30 07/05/17 22:00 07/06/17 03:45 White Blood Count 13.9 TH/MM3 7.0 TH/MM3 Red Blood Count 4.10 MIL/MM3 3.94 MIL/MM3 Hemoglobin 13.1 GM/DL 12.2 GM/DL Hematocrit 38.5 % 37.1 % Mean Corpuscular Volume 93.8 FL 94.1 FL Mean Corpuscular Hemoglobin 31.9 PG 31.0 PG Mean Corpuscular Hemoglobin Concent 34.0 % 32.9 % Red Cell Distribution Width 13.0 % 12.7 % Platelet Count 187 TH/MM3 153 TH/MM3 Mean Platelet Volume 8.7 FL 9.0 FL Neutrophils (%) (Auto) 81.4 % 69.6 % Lymphocytes (%) (Auto) 4.8 % 13.3 % Monocytes (%) (Auto) 13.4 % 15.0 % Eosinophils (%) (Auto) 0.2 % 1.5 % Basophils (%) (Auto) 0.2 % 0.6 % Neutrophils # (Auto) 11.3 TH/MM3 4.9 TH/MM3 Lymphocytes # (Auto) 0.7 TH/MM3 0.9 TH/MM3 Monocytes # (Auto) 1.9 TH/MM3 1.1 TH/MM3 Eosinophils # (Auto) 0.0 TH/MM3 0.1 TH/MM3 Basophils # (Auto) 0.0 TH/MM3 0.0 TH/MM3 CBC Comment DIFF FINAL DIFF FINAL Differential Comment Blood Urea Nitrogen 21 MG/DL 17 MG/DL Creatinine 0.80 MG/DL 0.74 MG/DL Random Glucose 100 MG/DL 84 MG/DL Total Protein 6.9 GM/DL 6.1 GM/DL Albumin 3.8 GM/DL 3.2 GM/DL Calcium Level 8.7 MG/DL 8.4 MG/DL Alkaline Phosphatase 81 U/L 69 U/L Aspartate Amino Transf (AST/SGOT) 24 U/L 14 U/L Alanine Aminotransferase (ALT/SGPT) 27 U/L 21 U/L Total Bilirubin 0.4 MG/DL 0.6 MG/DL Sodium Level 139 MEQ/L 138 MEQ/L Potassium Level 3.7 MEQ/L 3.6 MEQ/L Chloride Level 103 MEQ/L 103 MEQ/L Carbon Dioxide Level 29.2 MEQ/L 24.7 MEQ/L Anion Gap 7 MEQ/L 10 MEQ/L Lipase 3130 U/L 1234 U/L 309 U/L Urine Color YELLOW Urine Turbidity CLEAR Urine pH 5.5 Urine Specific Jbphh 1.014 Urine Protein NEG mg/dL Urine Glucose (UA) NEG mg/dL Urine Ketones 40 mg/dL Urine Occult Blood TRACE Urine Nitrite NEG Urine Bilirubin NEG Urine Urobilinogen LESS THAN 2.0 MG/DL Urine Leukocyte Esterase NEG Urine RBC 3 /hpf Urine WBC 1 /hpf Urine Mucus FEW /lpf Microscopic Urinalysis Comment CULT NOT INDICATED Amylase Level 115 U/L Estimat Glomerular Filtration Rate 79 ML/MIN Test 07/07/17 07:22 White Blood Count 6.3 TH/MM3 Red Blood Count 3.96 MIL/MM3 Hemoglobin 12.6 GM/DL Hematocrit 36.9 % Mean Corpuscular Volume 93.2 FL Mean Corpuscular Hemoglobin 31.9 PG Mean Corpuscular Hemoglobin Concent 34.2 % Red Cell Distribution Width 12.6 % Platelet Count 151 TH/MM3 Mean Platelet Volume 9.4 FL Neutrophils (%) (Auto) 70.2 % Lymphocytes (%) (Auto) 9.6 % Monocytes (%) (Auto) 16.1 % Eosinophils (%) (Auto) 3.3 % Basophils (%) (Auto) 0.8 % Neutrophils # (Auto) 4.4 TH/MM3 Lymphocytes # (Auto) 0.6 TH/MM3 Monocytes # (Auto) 1.0 TH/MM3 Eosinophils # (Auto) 0.2 TH/MM3 Basophils # (Auto) 0.0 TH/MM3 CBC Comment DIFF FINAL Differential Comment Blood Urea Nitrogen 12 MG/DL Creatinine 0.62 MG/DL Random Glucose 86 MG/DL Calcium Level 8.6 MG/DL Magnesium Level 2.0 MG/DL Sodium Level 137 MEQ/L Potassium Level 3.6 MEQ/L Chloride Level 104 MEQ/L Carbon Dioxide Level 24.9 MEQ/L Anion Gap 8 MEQ/L Estimat Glomerular Filtration Rate 97 ML/MIN Imaging Last Impressions Abdomen MRI 07/07/17 0600 Signed Impressions: Service Date/Time: Friday, July 07, 2017 12:03 - CONCLUSION: 1. The left upper pole renal lesion measures 12 mm and is diagnostic of a hemorrhagic cyst. The other lesion in the left mid to upper kidney is partially a simple cyst and partially a hemorrhagic cyst. Although nonspecific, the hemorrhagic contents could be related to the trauma. 2. The 9 mm lesion identified in the right lobe of the liver has imaging features diagnostic of a benign cyst. Chas Farah MD Chest X-Ray 07/05/[id number] Signed Impressions: Service Date/Time: Wednesday, July 05, 2017 21:36 - CONCLUSION: No evidence of acute cardiopulmonary disease. Chas Ash MD Abdomen/Pelvis CT 07/05/17 1728 Signed Impressions: Service Date/Time: Wednesday, July 05, 2017 18:43 - CONCLUSION: 1. Focal and uncomplicated, minimally displaced fracture of the right side of the sacrum. 2. 2 masses of the left kidney one having an appearance of a mildly complex cyst and the other possibly solid. There is also an indeterminate hypodensity of the right hepatic lobe. Outpatient MRI of the abdomen with and without contrast is recommended. Chas Ash MD Objective Remarks General: NAD, AAOx3 Chest: CTA Cardiac: Regular Abd: +BS, soft ND/NT Ext: No edema A/P Problem List: (1) Fracture of sacrum ICD Codes: S32.10XA - Unspecified fracture of sacrum, initial encounter for closed fracture Status: Acute Plan: - Pt is a 67 y/o female with hypothyroidism, migraine headaches, osteoarthritis , HTN and hx of breast cancer. - She presented to the ED on 07/05/17 after falling from a horse at a nancy event around 1 PM, about 4 hours prior to arrival at the ED. - She was ambulatory after the fall but reported pain in the lower back with radiation to the hips which was worse upon attempting to elevate the leg. There was no head injury or loss of consciousness. - CT Abd/pelvis in the ED noted focal and uncomplicated, minimally displaced fracture of the right side of the sacrum. - Trauma surgery was contacted in the ED and recommended Orthopedic surgery consultation - Ortho is following - Recommended for WBAT - Pain control PRN - She will need to followup with Dr. Lowe in 2 weeks - We will arrange for HHC/PT/OT as an outpt - Plan for discharge tomorrow morning. We will monitor BP and clinical status overnight. (2) Fall from horse ICD Codes: V80.010A - Animal-rider injured by fall from or being thrown from horse in noncollision accident, initial encounter Status: Acute Plan: - See above (3) Elevated lipase ICD Codes: R74.8 - Abnormal levels of other serum enzymes Status: Acute Plan: - Labs in the ED noted elevated Lipase level of 3130 but no reported abdominal pain. - Repeat lipase level came down to 1234 in the ED with Amylase level of 115. This mornings labs with Lipase of 309. - This may be related to the trauma of the pts fall - There was no evidence of pancreatitis on CT scan - Pt should minimize alcohol use upon discharge (4) Renal mass ICD Codes: N28.89 - Other specified disorders of kidney and ureter Plan: - CT abd/pelvis incidentally noted 2 masses of the left kidney one having an appearance of a mildly complex cyst and the other possibly solid, and there is also an indeterminate hypodensity of the right hepatic lobe. - MRI with IV contrast (07/07) --> The left upper pole renal lesion measures 12 mm and is diagnostic of a hemorrhagic cyst. The other lesion in the left mid to upper kidney is partially a simple cyst and partially a hemorrhagic cyst. Although nonspecific, the hemorrhagic contents could be related to the trauma. The 9 mm lesion identified in the right lobe of the liver has imaging features diagnostic of a benign cyst. - Pt had a known hx of renal cyst which was being monitored outpt but it had been a few years since she had any imaging studies - She will need to followup with her PCP for continued monitoring (5) HTN (hypertension) ICD Codes: I10 - Essential (primary) hypertension Plan: - Resume home meds at discharge (6) Hypothyroidism ICD Codes: E03.9 - Hypothyroidism, unspecified Plan: - Home meds resumed Assessment and Plan Patient examined. Assessment and plan formulated with Carmita Rivers PA-C. I agree with the above. Problem Qualifiers (1) Fracture of sacrum: (2) Fall from horse: Qualified Codes: V80.010A - Animal-rider injured by fall from or being thrown from horse in noncollision accident, initial encounter Carmita Rivers Jul 07, 2017 15:59 Carlos Drummond DO Jul 10, 2017 00:29
[2017-07-07 16:00] VITALS: BP 126/62; PULSE 90; RESP 18; TEMP 99; O2SAT 96
[2017-07-07] MEDS ORDERED: TRAM50 PO (16:47)
[2017-07-07 20:00] VITALS: BP 138/65; PULSE 82; RESP 20; TEMP 98.8; O2SAT 95
[2017-07-08] VITALS: BP 152/69; PULSE 80; RESP 20; TEMP 98.3; O2SAT 95
--- NOTE | 2017-07-08 06:29 | PD.ORT.PN ---
Subjective Subjective Remarks Progressing with physical therapy slowly. Is planning on discharged home today Objective Vitals Vital Signs Date Time Temp Pulse Resp B/P (MAP) Pulse Ox O2 Delivery O2 Flow Rate FiO2 07/08/17 00:00 98.3 80 20 152/69 (96) 95 07/07/17 20:00 98.8 82 20 138/65 (89) 95 07/07/17 16:00 99.0 90 18 126/62 (83) 96 07/07/17 11:57 98.0 85 18 121/60 (80) 94 07/07/17 10:26 16 07/07/17 07:52 96.0 82 18 140/72 (94) 95 I/O 07/07/17 07/07/17 07/07/17 07/08/17 07/08/17 07/08/17 07:00 15:00 23:00 07:00 15:00 23:00 Intake Total 200 ml 600 ml 380 ml Output Total 300 ml Balance 200 ml 600 ml 80 ml Intake Oral 200 ml 600 ml 380 ml Output Urine Total 300 ml # Voids 2 3 # Bowel Movements 0 0 Result Diagram: 07/07/1772107/07/17721 Objective Remarks Bilateral lower extremities: No pain with passive range of motion of bilateral hips. Moderate tenderness to palpation of sacrum and moderate tenderness with active range of motion of bilateral hips. Distally intact sensation bilateral lower extremities with active dorsiflexion plantar flexion of feet Assessment & Plan Assessment and Plan 1) Right Sacral Fx - nonop -WBAT -gait training -work with therapy -ortho cleared for discharge to home this morning -f/u Chrissy 2 weeks Elvis Mckeon Jr. Jul 08, 2017 06:29
[2017-07-08] MEDS: traMADol HCL 50 MG TAB PO PRN ×2 (06:38→17:14)
[2017-07-08] MEDS: LEVOTHYROXINE SODIUM 50 MCG TAB PO SCH (06:38)
[2017-07-08 08:00] VITALS: BP 125/65; PULSE 75; RESP 16; TEMP 97.8; O2SAT 96
[2017-07-08] MEDS: LOSARTAN 50 MG TAB PO SCH (09:00)
[2017-07-08] MEDS: 1/2 NS + KCL 20 MEQ INJ 1,000 ML IV SCH (09:35)
--- NOTE | 2017-07-08 10:53 | HHI.DS ---
Discharge Summary Admission Date Jul 05, 2017 at 21:37 Discharge Date: Jul 08, 2017 Admitting Diagnosis acute sacral fracture; hyperlipasemia (1) Fracture of sacrum Diagnosis: Principal ICD Codes: S32.10XA - Unspecified fracture of sacrum, initial encounter for closed fracture Status: Acute (2) Fall from horse Diagnosis: Principal ICD Codes: V80.010A - Animal-rider injured by fall from or being thrown from horse in noncollision accident, initial encounter Status: Acute (3) Elevated lipase Diagnosis: Principal ICD Codes: R74.8 - Abnormal levels of other serum enzymes Status: Acute (4) Renal mass Diagnosis: Principal ICD Codes: N28.89 - Other specified disorders of kidney and ureter (5) HTN (hypertension) Diagnosis: Secondary ICD Codes: I10 - Essential (primary) hypertension (6) Hypothyroidism Diagnosis: Secondary ICD Codes: E03.9 - Hypothyroidism, unspecified Consultants Dr. Lowe Procedures none Brief History Mrs. Hermosillo is a 67 y/o female with hypothyroidism, migraine headaches, osteoarthritis, HTN and hx of breast cancer. She presented to the ED on 07/05/17 after falling from a horse at a nancy event around 1 PM, about 4 hours prior to arrival at the ED. She was ambulatory after the fall but reported pain in the lower back with radiation to the hips which was worse upon attempting to elevate the leg. There was no head injury or loss of consciousness. She also reports a chronic neck pain which has not been exacerbated by the fall. CT Abd/ pelvis in the ED noted focal and uncomplicated, minimally displaced fracture of the right side of the sacrum, 2 masses of the left kidney one having an appearance of a mildly complex cyst and the other possibly solid, and there is also an indeterminate hypodensity of the right hepatic lobe. She had a noted elevated Lipase level of 3130 but denies any abdominal pain. Repeat lipase level came down to 1234 in the ED with Amylase level of 115. This mornings labs with Lipase of 309. CBC/BMP: 07/07/17 0722 07/07/17 0722 Significant Findings Laboratory Tests Test 07/05/17 17:45 07/05/17 18:30 07/05/17 22:00 07/06/17 03:45 White Blood Count 13.9 TH/MM3 (4.0-11.0) Neutrophils (%) (Auto) 81.4 % (16.0-70.0) Lymphocytes (%) (Auto) 4.8 % (9.0-44.0) Monocytes (%) (Auto) 13.4 % (0.0-8.0) 15.0 % (0.0-8.0) Neutrophils # (Auto) 11.3 TH/MM3 (1.8-7.7) Lymphocytes # (Auto) 0.7 TH/MM3 (1.0-4.8) 0.9 TH/MM3 (1.0-4.8) Monocytes # (Auto) 1.9 TH/MM3 (0-0.9) 1.1 TH/MM3 (0-0.9) Blood Urea Nitrogen 21 MG/DL (7-18) Lipase 3130 U/L (73-393) 1234 U/L (73-393) Urine Ketones 40 mg/dL (NEG) Urine Occult Blood TRACE (NEG) Urine Mucus FEW /lpf (OCC) Red Blood Count 3.94 MIL/MM3 (4.00-5.30) Total Protein 6.1 GM/DL (6.4-8.2) Albumin 3.2 GM/DL (3.4-5.0) Calcium Level 8.4 MG/DL (8.5-10.1) Aspartate Amino Transf (AST/SGOT) 14 U/L (15-37) Estimat Glomerular Filtration Rate 79 ML/MIN (>89) Test 07/07/17 07:22 Red Blood Count 3.96 MIL/MM3 (4.00-5.30) Neutrophils (%) (Auto) 70.2 % (16.0-70.0) Monocytes (%) (Auto) 16.1 % (0.0-8.0) Lymphocytes # (Auto) 0.6 TH/MM3 (1.0-4.8) Monocytes # (Auto) 1.0 TH/MM3 (0-0.9) PE at Discharge General: NAD, AAOx3 Chest: CTA Cardiac: Regular Abd: +BS, soft ND/NT Ext: No edema Hospital Course Fracture of sacrum - Pt is a 67 y/o female with hypothyroidism, migraine headaches, osteoarthritis , HTN and hx of breast cancer. - She presented to the ED on 07/05/17 after falling from a horse at a nancy event around 1 PM, about 4 hours prior to arrival at the ED. - She was ambulatory after the fall but reported pain in the lower back with radiation to the hips which was worse upon attempting to elevate the leg. There was no head injury or loss of consciousness. - CT Abd/pelvis in the ED noted focal and uncomplicated, minimally displaced fracture of the right side of the sacrum. - Trauma surgery was contacted in the ED and recommended Orthopedic surgery consultation - Ortho is following- nonoperative. Recommended for WBAT - Pain control PRN - She will need to followup with Dr. Lowe in 2 weeks - We will arrange for HHC/PT/OT as an outpt Fall from horse - See above Elevated lipase - Labs in the ED noted elevated Lipase level of 3130 but no reported abdominal pain. - Repeat lipase level came down to 1234 in the ED with Amylase level of 115. This mornings labs with Lipase of 309. - This may be related to the trauma of the pts fall - There was no evidence of pancreatitis on CT scan - Pt should minimize alcohol use upon discharge Renal mass - CT abd/pelvis incidentally noted 2 masses of the left kidney one having an appearance of a mildly complex cyst and the other possibly solid, and there is also an indeterminate hypodensity of the right hepatic lobe. - MRI with IV contrast (07/07) --> The left upper pole renal lesion measures 12 mm and is diagnostic of a hemorrhagic cyst. The other lesion in the left mid to upper kidney is partially a simple cyst and partially a hemorrhagic cyst. Although nonspecific, the hemorrhagic contents could be related to the trauma. The 9 mm lesion identified in the right lobe of the liver has imaging features diagnostic of a benign cyst. - Pt had a known hx of renal cyst which was being monitored outpt but it had been a few years since she had any imaging studies - She will need to followup with her PCP for continued monitoring HTN (hypertension) - Resume home meds at discharge Hypothyroidism - Home meds resumed Pt Condition on Discharge: Stable Discharge Disposition: Disch w/ Home Health Serv Discharge Instructions DIET: Follow Instructions for: Heart Healthy Diet Activities you can perform: Weight Bearing as Arpit Follow up Referrals: Orthopedics - 2 Weeks [facility] with Davie Lowe MD PCP Follow-up - [address] Chung Wolff New Medications: Adjustable Commode 3-in-1 (Adjustable Commode 3-in-1) 1 Mis Mis EA .ROUTE DIRECTED, #1 Walker/Adult/Folding (Walker/Adult/Folding) 1 Mis Mis EA .ROUTE DIRECTED, #1 0 Refills Tramadol (Ultram) 50 Mg Tab 50 MG PO Q8H PRN for pain, #20 TAB 0 Refills Continued Medications: Anastrozole (Arimidex) 1 Mg Tab 1 MG PO DAILY for Breast Cancer, #30 TAB 0 Refills Levothyroxine (Synthroid) 25 Mcg Tab 50 MCG PO DAILY for Thyroid, #30 TAB 0 Refills Losartan-Hydrochlorothiazide (Losartan-Hydrochlorothiazide) 100-12.5 Mg Tab 1 TAB PO DAILY for Blood Pressure Management, #30 TAB 0 Refills Hold for systolic BP less than 140 Sumatriptan (Imitrex) 50 Mg Tab 50 MG PO ONCE PRN for MIGRAINE HEADACHE, TAB 0 Refills If a satisfactory response has not been obtained at 2 hours, a second dose may be administered [Iron Supplement] () Additional Information Patient examined. Assessment and plan formulated with Peace Shepard PA-C. I agree with the above. Peace Shepard Jul 08, 2017 10:53 Carlos Drummond DO Jul 10, 2017 00:31
[2017-07-08] MEDS: DOCUSATE SODIUM 100 MG CAP PO SCH (10:56)
[2017-07-08] MEDS: ANASTROZOLE 1 MG TAB PO SCH (10:56)
[2017-07-08] MEDS: SODIUM CHLORIDE 0.9% FLUSH 10 ML FLUSH IV FLUSH SCH (10:56)
[2017-07-08 12:00] VITALS: BP 126/56; PULSE 70; RESP 16; TEMP 97.2; O2SAT 98
== END 2017-07-08 18:32 | disposition home health service (06) | DRG 552 ==
LOC: NEPC 14:17 → NEDA 21:37 → N06B 22:50
PROVIDERS: ADMIT Hospitalist; ATTEND Hospitalist
DX: S32.19XA Other fracture of sacrum, initial encounter for closed fracture (principal); N28.1 Cyst of kidney, acquired; K76.89 Other specified diseases of liver; I10 Essential (primary) hypertension; E03.9 Hypothyroidism, unspecified; V80.010A Animal-rider injured by fall from or being thrown from horse in noncollision accident, initial encounter; Y93.52 Activity, horseback riding; Y92.89 Other specified places as the place of occurrence of the external cause; Y99.9 Unspecified external cause status; M85.80 Other specified disorders of bone density and structure, unspecified site; Z85.3 Personal history of malignant neoplasm of breast; S70.02XA Contusion of left hip, initial encounter; M19.90 Unspecified osteoarthritis, unspecified site; G43.909 Migraine, unspecified, not intractable, without status migrainosus; G89.29 Other chronic pain; M54.2 Cervicalgia; Z92.3 Personal history of irradiation; Z92.21 Personal history of antineoplastic chemotherapy; Z98.51 Tubal ligation status; Z80.6 Family history of leukemia; R74.8 Abnormal levels of other serum enzymes; N28.89 Other specified disorders of kidney and ureter; I95.1 Orthostatic hypotension
CPT/HCPCS: 71045; 74177; 74183; 80048; 80053; 81001; 82150; 83690; 83735; 85025; 93005; 96361; 96374; 96375; A9579; J1170; J1885; J2405; J7030; Q9967